=== PATIENT | male | born 1935 | race Caucasian/White ===

== ENCOUNTER 2018-05-27 13:50 | Observation (INO) | payer MEDICARE ==
[2018-05-27] MEDS ORDERED: NS 0.9% 1000 ML* 1,000 ML IV ONE (14:12)
--- NOTE | 2018-05-27 14:20 | ED ---
Syncope/Near Syncope - HPI Summary HPI Summary: This is scribe Eduin Godinez documenting for attending Shay Almodovar MD. LEVEL 5 CAVEAT: Patient suffers from Alzheimers and cannot recall what happened. This patient is an 82 year old M BIBA to [facility] with a chief complaint of near syncope since earlier today. Patient reports weakness and hypotension. He lives at home with his . Per his , he seemed well this morning, but in the middle of doing a puzzle, he rushed to his in the next room with an agitated expression. The reports that he sat back with his mouth open and started tremoring. asked if he was in pain but didnt understand what he was saying. She reports that he is usually healthy and normal except for Alzheimers. Patient did not know where he was. I, Dr. Almodovar, personally performed the services described in this documentation as scribed in my presence, and it is both accurate and complete. - History Of Current Complaint Chief Complaint: EDWeakness Time Seen by Provider: 05/27/18 14:11 Hx Obtained From: Family/Lay Out Inspector - Hx From Patient Unobtainable Due To: Other - Alzheimer's Onset/Duration: Sudden Onset, Lasting Hours, Still Present Timing: Constant Context: Witnessed Activity At Onset: Other - Doing a puzzle Associated Head Trauma: No Aggravating Factor(s): Nothing Alleviating Factor(s): Nothing Associated Signs And Symptoms: Weakness, Other - Hypotension - Allergies/Home Medications Allergies/Adverse Reactions: Allergies Allergy/AdvReac Type Severity Reaction Status Date / Time No Known Allergies Allergy Verified 05/27/18 14:30 Home Medications: Home Medications Donepezil TAB* [Aricept 5 MG TAB*] 10 mg PO QPM 05/27/18 [History Confirmed ] Memantine TAB* [Namenda TAB*] 5 mg PO DAILY 05/27/18 [History Confirmed 05/27/18 ] Omeprazole CAP* [Prilosec CAP* 20 MG] 20 mg PO DAILY 05/27/18 [History Confirmed 05/27/18] Sertraline* [Zoloft*] 25 mg PO BEDTIME 05/27/18 [History Confirmed 05/27/18] PMH/Surg Hx/FS Hx/Imm Hx Endocrine/Hematology History: Denies: Hx Diabetes Cardiovascular History: Denies: Hx Coronary Artery Disease Neurological History: Reports: Other Neuro Impairments/Disorders - Alzheimer's Infectious Disease History: Unable to Obtain/Confirm Infectious Disease History: Denies: Traveled Outside the [place] in Last 30 Days - Family History Known Family History: Positive: Other - Alzheimer's Negative: Cardiac Disease, Diabetes - Social History Occupation: Retired Lives: With Family - Review of Systems Positive: Other - Hypotension Positive: Weakness, Syncope - Near syncope All Other Systems Reviewed And Are Negative: No Physical Exam - Summary Physical Exam Summary: LEVEL 5 CAVEAT: Physical limited due to patient suffering from Alzheimer's. VITAL SIGNS: Reviewed. GENERAL: Patient is a well-developed and nourished MALE who is lying comfortable in the stretcher. Patient is not in any acute respiratory distress. HEAD AND FACE: No signs of trauma. No ecchymosis, hematomas or skull depressions. No sinus tenderness. EYES: PERRLA, EOMI x 2, No injected conjunctiva, no nystagmus. EARS: Hearing grossly intact. Ear canals and tympanic membranes are within normal limits. MOUTH: Oropharynx within normal limits. NECK: Supple, trachea is midline, no adenopathy, no JVD, no carotid bruit, no c- spine tenderness, neck with full ROM. CHEST: Symmetric, no tenderness at palpation LUNGS: Clear to auscultation bilaterally. No wheezing or crackles. CVS: Regular rate and rhythm, S1 and S2 present, no murmurs or gallops appreciated. ABDOMEN: Soft, non-tender. No signs of distention. No rebound no guarding, and no masses palpated. Bowel sounds are normal. EXTREMITIES: FROM in all major joints, no edema, no cyanosis or clubbing. NEURO: Alert and oriented x 3. No acute neurological deficits. Speech is normal and follows commands. SKIN: Dry and warm Triage Information Reviewed: Yes Vital Signs On Initial Exam: Initial Vitals Temp Pulse Resp BP Pulse Ox 96.7 F 51 11 111/64 96 05/27/18 13:56 05/27/18 13:56 05/27/18 13:56 05/27/18 13:56 05/27/18 13:56 Vital Signs Reviewed: Yes Diagnostics - Vital Signs Vital Signs Temp Pulse Resp BP Pulse Ox 05/27/18 13:56 96.7 F 51 11 111/64 96 - Laboratory Result Diagrams: 05/27/18 14:20 05/27/18 14:20 Lab Statement: Any lab studies that have been ordered have been reviewed, and results considered in the medical decision making process. - Radiology Chest X-Ray Radiology Interpretation Completed By: Radiologist - 14:57. NO ACTIVE CARDIOPULMONARY DISEASE. ED Physician has reviewed this report. - CT Brain CT CT Interpretation Completed By: Radiologist - 14:55. NO ACUTE INTRACRANIAL PATHOLOGY. DIFFUSE INVOLUTIONAL CHANGE. ED Physician has reviewed this report. - EKG No standard instances Cardiac Rate: Bradycardia - 51 BPM EKG Rhythm: Sinus Rhythm EKG Interpretation: Taken 14:02. Q wave in V1 and V2. No ST elevation. Course/Dx Assessment/Plan: This is an 82-year-old male who presents to the emergency department with with a chief complaint of having dizziness and a syncopal episode. Patient is unable to give any history since the patient has Alzheimer s dementia. All the history was obtained by . Physical without any significant abnormality except for hemoglobin 13, hematocrit of 38 glucose of 123. Troponin is 0.00. Chest x-ray impression: No active cardiac cuddy pulmonary disease. Head CT impression: No acute interconnected pathology. Diffuse involutional changes. Because of the syncopal episode I discussed the case with Dr. Gomez who accepted the patient for admission. The patient is hemodynamically stable alert oriented 3. - Diagnoses Differential Diagnosis/HQI/PQRI: Positive: Vasovagal Episode Provider Diagnoses: Syncope - Physician Notifications Discussed Care of Patient With: Antonia Gomez - Hospitalist Time Discussed With Above Provider: 16:00 Instructed by Provider To: Admit As Inpatient Discharge - Sign-Out/Discharge Documenting (check all that apply): Patient Departure - Admit to Antonia Gomez MD - Discharge Plan Condition: Stable Disposition: ADMITTED TO [facility]
[2018-05-27 14:38] LABS: ABS Basophils 0.1 10^3/ul (0-0.2); ABS Eosinophils 0.1 10^3/ul (0-0.6); ABS Monocytes 0.7 10^3/ul (0-0.8); ABS Neutrophils 4.3 10^3/ul (1.5-7.7); ABS Nucleated RBC 0 10^3/ul; Eosinophil % 2.3 % (0-6); Hematocrit 38 % (42-52); Mean Corpuscular HGB Conc 34 g/dl (31-36); Mean Corpuscular Hemoglobin 34 pg (27-31); Mean Corpuscular Volume 100 fL (80-94); Mean Platelet Volume 7.2 um3 (7.4-10.4); Nucleated Red Blood Cells % 0; Platelet Count 238 10^3/ul (150-450); Red Blood Count 3.82 10^6/ul (4.00-5.40); Red Cell Distribution Width 14 % (10.5-15); White Blood Count 6.2 10^3/ul (3.5-10.8)
[2018-05-27 14:54] LABS: EGFR Non-African American 65.6 (>60)
--- NOTE | 2018-05-27 14:58 | RAD ---
HISTORY: dizziness COMPARISONS: None TECHNIQUE: Multiple contiguous axial CT scans were obtained of the head without intravenous contrast. FINDINGS: HEMORRHAGE/INFARCT: There is no hemorrhage or acute infarct. MASSES/SHIFT: There is no mass or shift. EXTRA-AXIAL SPACES: There are no extra-axial fluid collections. SULCI AND VENTRICLES: There is diffuse and proportional enlargement of the sulci and ventricles. CEREBRUM: There are no focal parenchymal abnormalities. BRAINSTEM: There are no focal parenchymal abnormalities. CEREBELLUM: There are no focal parenchymal abnormalities. VESSELS: There is calcification of the cavernous segments of the internal carotid arteries bilaterally and of the distal vertebral arteries bilaterally. PARANASAL SINUSES: The paranasal sinuses are clear. ORBITS: The orbits are unremarkable. BONES AND SOFT TISSUE: No bone or soft tissue abnormalities are noted. OTHER: None IMPRESSION: NO ACUTE INTRACRANIAL PATHOLOGY. DIFFUSE INVOLUTIONAL CHANGE.
--- NOTE | 2018-05-27 15:01 | RAD ---
HISTORY: dizziness COMPARISONS: None VIEWS: 4: Frontal dual-energy and lateral views of the chest. FINDINGS: CARDIOMEDIASTINAL SILHOUETTE: The cardiomediastinal silhouette is normal. ANNABEL: The annabel are normal. PLEURA: The costophrenic angles are sharp. No pleural abnormalities are noted. LUNG PARENCHYMA: The lungs are clear. ABDOMEN: The upper abdomen is clear. There is no subphrenic gas. BONES AND SOFT TISSUES: Degenerative changes are noted along the spine. OTHER: None. IMPRESSION: NO ACTIVE CARDIOPULMONARY DISEASE.
[2018-05-27] MEDS ORDERED: Acetaminophen TAB* 325 MG PO PRN (16:51)
[2018-05-27] MEDS: Donepezil TAB* 5 MG PO SCH (18:30)
--- NOTE | 2018-05-27 21:01 | HP ---
HOSPITAL MEDICINE HISTORY AND PHYSICAL: DATE OF ADMISSION: 05/27/18 PRIMARY CARE PHYSICIAN: None. ATTENDING PHYSICIAN: Antonia Gomez MD* (dictation provided by Mayte Meier NP) CHIEF COMPLAINT: Near syncopal episode. HISTORY OF PRESENT ILLNESS: Mr. Matute is an 82-year-old male with past medical history of dementia who presented to the hospital today with his via EMS after having a near syncopal episode. Mr. Matute has been in his normal state of health per his . The patient has poor memory of recent events due to Alzheimer's and is not able to provide much in the way of corroboration of his history of present illness. His states that there has been no report of nausea or vomiting. She has seen no diarrhea. There is no complaint of pain in general. He has not reported chest pain, shortness of breath. She has note noted a cough or fever. Today, the patient was working on a puzzle in his home when he came rushing quickly into the room where his was seated. She knew immediately that something was wrong. The patient sat down in the chair and leaned his head back with his mouth open. The patient 's asked if he was in pain and he mumbled something. He then began shaking violently and she called EMS. By the time EMS arrived, the patient seemed a bit confused but was awake and interactive. There is no report of bowel or bladder incontinence. He did not bite his tongue. In the emergency room, Mr. Matute had labs, which were unremarkable. His EKG shows a sinus bradycardia with no evidence of ischemia. Troponin is 0.00. CRP is 1.35. His TSH is 1.26. The CT brain is normal showing only diffuse involutional changes. Chest x-ray shows no acute intrathoracic process. PAST MEDICAL HISTORY: Dementia with Alzheimer's disease. MEDICATIONS: 1. Donepezil 10 mg p.o. q.p.m. 2. Namenda 5 mg p.o. daily. 3. Omeprazole 20 mg p.o. daily. 4. Sertraline 25 mg p.o. at bedtime. ALLERGIES: No known drug allergies. FAMILY HISTORY: Reviewed and noncontributory. SOCIAL HISTORY: The patient was a former smoker, but he quit decades ago. No report of alcohol or drug use. He lives with his , Cori, who is his healthcare proxy. REVIEW OF SYSTEMS: A 14-point review of systems was completed with Mr. Matute today with the help of his and none were noted to be positive other than those mentioned above. PHYSICAL EXAMINATION GENERAL: Mr. Matute is sitting on the bed with his at the bedside. He is in no acute distress. VITAL SIGNS: Temperature 96.7, pulse rate 54, respiratory rate 18, O2 saturation 95% on room air, blood pressure 118/69. LUNGS: Clear to auscultation bilaterally with no accessory muscle use and good aeration. HEART: S1, S2. No murmur, rub, or gallop and regular. ABDOMEN: Soft, nontender with bowel sounds positive x4. EXTREMITIES: No cyanosis or edema. NEURO: He is alert. He is oriented to himself only. He moves all extremities equally. He follows all commands well. There is no facial asymmetry or focal weakness. Extraocular movements are intact. SKIN: Intact. LABORATORY DATA/DIAGNOSTIC STUDIES: Labs, WBC 6.2, hemoglobin 13.0, hematocrit 38, platelet count 238. Sodium 138, potassium 4.2, chloride 109, serum bicarbonate 26, BUN 17, creatinine 1.0, glucose 123. Magnesium 2.2. Troponin 0.00. CRP 1.35. TSH 1.26. Lactic acid 0.9. Serum alcohol level is less than 10. CT brain shows no acute change, only diffuse involutional changes are noted. Chest x-ray shows no acute intrathoracic process. EKG shows sinus bradycardia with no evidence of ischemia. ASSESSMENT AND PLAN: Mr. Matute is an 82-year-old male with past medical history of Alzheimer's disease who presents to the hospital today after near syncopal episode at home. Our plans are for observation in the hospital for the followin. Near syncope. Plan to monitor on the telemetry unit overnight to evaluate for heart arrhythmia. I will also obtain an EEG based on the description and the possibility for seizure. The patient shows no evidence of infection or any other abnormality thus far in our workup. 2. Dementia. Plan to continue home medications. 3. DVT prophylaxis. Heparin subcu. 4. Code status is full code. This was reviewed with the patient's at the bedside. TIME SPENT: Approximately 60 minutes were spent on the admission of this patient, more than half time spent with the patient at the bedside reviewing the events leading up to this hospitalization, performing the physical examination, and reviewing my plan of care. MAYTE MEIER NP [id number]/[facility] #: [id number] MTDElva
[2018-05-27] MEDS: Sertraline* 25 MG TAB PO SCH (21:59)
[2018-05-27] MEDS: Heparin VIAL(*) 5000 UNITS/ML VIAL (FIVE THOUSAND) SUBCUT SCH (21:59)
[2018-05-27 22:37] LABS: Urine Appearance Clear; Urine Blood Negative (Negative); Urine Color Yellow; Urine Ketones Negative (Negative); Urine Protein Negative (Negative); Urine Specific Gravity 1.014 (1.010-1.030); Urine Urobilinogen Negative (Negative)
[2018-05-28] MEDS: Heparin VIAL(*) 5000 UNITS/ML VIAL (FIVE THOUSAND) SUBCUT SCH ×3 (05:53→21:40)
[2018-05-28] MEDS: Memantine TAB* 5 MG PO SCH (09:27)
[2018-05-28] MEDS: Omeprazole CAP* 20 MG PO SCH (09:29)
--- NOTE | 2018-05-28 14:34 | PN ---
Subjective Date of Service: 05/28/18 Interval History: Patient seen and examined at bedside. Denies fever, chills, shortness of breath , chest discomfort, N/V/D. He states that he felt like he was well hydrated yesterday. Tele: Sinus bonnie to sinus rhythm, rate 40-60's. Family History: Unchanged from Admission Social History: Unchanged from Admission Past Medical History: Unchanged from Admission Objective Active Medications: Acetaminophen (Tylenol Tab*) 650 mg PO Q6H PRN Reason: PAIN Donepezil HCl (Aricept Tab*) 10 mg PO QPM GIDEON Heparin Sodium (Porcine) (Heparin Vial(*)) 5,000 units SUBCUT Q8HR GIDEON Memantine (Namenda Tab*) 5 mg PO DAILY GIDEON Omeprazole (Prilosec Cap*) 20 mg PO DAILY GIDEON Sertraline HCl (Zoloft*) 25 mg PO BEDTIME GIDEON Vital Signs - 8 hr 05/28/18 05/28/18 07:29 11:26 Temperature 97.8 F 97.7 F Pulse Rate 51 57 Respiratory 16 16 Rate Blood Pressure 114/52 101/55 (mmHg) O2 Sat by Pulse 96 96 Oximetry Oxygen Devices in Use Now: None Appearance: NAD, sitting up in bed Ears/Nose/Mouth/Throat: Mucous Membranes Moist Respiratory: Symmetrical Chest Expansion and Respiratory Effort, Clear to Auscultation Cardiovascular: NL Sounds; No Murmurs; No JVD, RRR Abdominal: NL Sounds; No Tenderness; No Distention Extremities: No Edema Skin: No Rash or Ulcers Neurological: Alert and Oriented x 3, NL Muscle Strength and Tone Lines/Tubes/Other Access: Clean, Dry and Intact Peripheral IV - site benign Nutrition: Taking PO's Result Diagrams: 05/27/18 14:20 05/27/18 14:20 Assess/Plan/Problems-Billing Assessment: Mr. Matute is an 82 yo male with PMH significant for dementia who presented to the emergency room after a near syncopal episode. - Patient Problems (1) Syncope Code(s): R55 - SYNCOPE AND COLLAPSE SNOMED Code(s): 694725142 Comment: - Unclear etiology at this time - Brain CT negative - EEG pending - Troponin 0.00 x3, no events on tele (2) Dementia Code(s): F03.90 - UNSPECIFIED DEMENTIA WITHOUT BEHAVIORAL DISTURBANCE SNOMED Code(s): 06295568 Comment: - Continue namenda and aricept (3) DVT prophylaxis Code(s): VUJ8649 - SNOMED Code(s): 276221935 Comment: - SQ heparin (4) Full code status Code(s): Z78.9 - OTHER SPECIFIED HEALTH STATUS SNOMED Code(s): 918475280 Status and Disposition: OBV. Discharge to home when medically stable, possibly in the AM. Attending: Antonia Mckinley
[2018-05-28] MEDS: Donepezil TAB* 5 MG PO SCH (17:08)
[2018-05-28] MEDS: Sertraline* 25 MG TAB PO SCH (21:40)
[2018-05-29] MEDS: Heparin VIAL(*) 5000 UNITS/ML VIAL (FIVE THOUSAND) SUBCUT SCH ×2 (06:04→13:26)
[2018-05-29] MEDS: Omeprazole CAP* 20 MG PO SCH (09:50)
--- NOTE | 2018-05-29 10:11 | EEG ---
ELECTROENCEPHALOGRAPHY: DATE OF STUDY: 05/28/18 PATIENT OF: Jazmyne Hoffman NP HISTORY: This is an 82-year-old being evaluated for near syncope. MEDICATIONS: Include: 1. Aricept. 2. Zoloft. 3. Heparin 4. Namenda. 5. Prilosec. INTERPRETATION: With the patient awake, background cerebral activity consisted of admixed diffuse [id number] amplitude alpha and beta activity. No focal abnormalities or major asymmetries of background. No epileptiform potentials are noted. IMPRESSION: This awake EEG was within normal limits and was called into the patient's hospitalist. [id number]/[facility] #: [id number] [facility] HOSPITALElva
[2018-05-29] MEDS: Memantine TAB* 5 MG PO SCH (10:46)
--- NOTE | 2018-05-29 13:09 | ECHO ---
Patient: SCOTT GUAJARDO [facility] Rec#: [id number] : 1935 Date: 05/29/2018 Age: 82y Height: 180.3 cm / 71.0 in Weight: 72.6 kg / 160.0 lbs Sex: M BSA: 1.9 Room#: [facility] Admit Date#: 05/28/2018 Type: Inpatient Referring: Jazmyne Alexandra NP Reading: Becca Whipple MD [employer] Drawer: Madiha Mahan RN RDCS CC: Sonia Ferris MD Transthoracic Echocardiogram Indication: Syncope BP: 126/66 HR: 64 Rhythm: NSR Findings History: Dementia, Alzheimer's disease, former smoker Technical Comments: The study quality is fair. Left Ventricle: The left ventricular chamber size is normal. There is no left ventricular hypertrophy. Global left ventricular wall motion and contractility are within normal limits. Left ventricular systolic function is at the lower limits of normal. The estimated ejection fraction is 50-55%. There is an E to A reversal in the mitral valve flow pattern suggestive of diastolic dysfunction. Left Atrium: The left atrial chamber size is normal. Right Ventricle: The right ventricular chamber size and systolic function are within normal limits. Right Atrium: The right atrial cavity size is normal. Aortic Valve: The aortic valve leaflets are mildly thickened. There is aortic annular calcification. There is a trace of aortic regurgitation. There is mild aortic stenosis. The mean gradient of the aortic valve is 7 mmHg. The peak instantaneous gradient of the aortic valve is 11 mmHg. The aortic valve area, by peak velocities, is calculated at 2 cm2. The aortic valve area, by VTI's, is calculated at 2 cm2. Dimensionless index is 0.58. Mitral Valve: The mitral valve leaflets are mildly thickened. Mild mitral leaflet calcification is visualized. There is no evidence of mitral regurgitation. There is no evidence of mitral stenosis. Tricuspid Valve: The tricuspid valve leaflets are normal. There is trace tricuspid regurgitation. Unable to estimate the right ventricular systolic pressure. There is no tricuspid stenosis. Pulmonic Valve: The pulmonic valve structure is not well visualized. There is no evidence of pulmonic regurgitation. There is no pulmonic stenosis. Pericardium: There is no significant pericardial effusion. A pericardial fat pad is visualized. Aorta: There is mild dilatation of the ascending aorta. There is no dilatation of the aortic arch. There is no dilation of the aortic root. Pulmonary Artery: The main pulmonary artery is not well visualized. Venous: The inferior vena cava appears normal in size. There is a greater than 50% respiratory change in the inferior vena cava dimension. Conclusions The left ventricular chamber size is normal. Global left ventricular wall motion and contractility are within normal limits. The estimated ejection fraction is 50-55%. There is an E to A reversal in the mitral valve flow pattern suggestive of diastolic dysfunction. The right ventricular chamber size and systolic function are within normal limits. Calcific aortic valve sclerosis with trace aortic regurgitation. There is mild aortic stenosis: the mean gradient of the aortic valve is 7 mmHg. The aortic valve area, by VTI's, is calculated at 2 cm2, dimensionless index is 0.58. Mitral valve sclerosis with good function. There is trace tricuspid regurgitation. No prior echo available to compare. Measurements Name Value Normal Range RVIDd (AP) 2D 3 cm (0.9 - 2.6) RVDdMajor (2D) 2.9 cm (2.2 - 4.4) RAd ISD 4CH 4.4 cm (3.4 - 4.9) RA (A4C)W 3.1 cm (2.9 - 4.6) IVSd (2D) 0.9 cm (0.6 - 1) LVPWd (2D) 1 cm (0.6 - 1) LVIDd (2D) 3.6 cm (3.6 - 5.4) LVIDs (2D) 2.7 cm - LV FS (2D) 25 % (25 - 45) Aortic Annulus 2.2 cm (1.4 - 2.6) Ao root diameter (2D) 3.4 cm (2.1 - 3.5) Ascending Ao 3.8 cm (2.1 - 3.4) Aortic arch 2.5 cm (1.8 - 3.4) LA dimension (AP) 2D 2.7 cm (2.3 - 3.8) LAd ISD 4CH 4.8 cm (2.9 - 5.3) LA ISD 4CH W 3.1 cm (2.5 - 4.5) Name Value Normal Range LA ESV SP 4CH (A/L) 28 ml - LA ESV SP 2CH (A/L) 41 ml - LA ESV BP (A/L) 34 ml - LA ESV BP (A/L) index 17.6 ml/m2 - LA ESV SP 4CH (MOD) 26 ml - LA ESV SP 2CH (MOD) 38 ml - Name Value Normal Range MV E-wave Vmax 0.51 m/sec - MV deceleration time 348 msec - MV A-wave Vmax 0.68 m/sec - MV E:A ratio 0.75 ratio - LV septal e' Vmax 0.07 m/sec - LV lateral e' Vmax 0.09 m/sec - LV E:e' septal ratio 7.3 ratio - LV E:e' lateral ratio 5.7 ratio - Name Value Normal Range AV Vmax 1.7 m/sec - AV VTI 32.8 cm - AV peak gradient 11 mmHg - AV mean gradient 7 mmHg - LVOT diameter 2.1 cm - LVOT Vmax 0.98 m/sec - LVOT VTI 18.9 cm - LVOT peak gradient 4 mmHg - LVOT mean gradient 2 mmHg - DOI (VTI) 0.58 ratio - DOI (Vmax) 0.58 ratio - SANDIE (continuity Vmax) 2 cm2 - SANDIE (continuity VTI) 2 cm2 - ZAKIYA Vmax 0.54 m/sec - Name Value Normal Range IVC diameter 1.6 cm - Name Value Normal Range PV Vmax 0.75 m/sec -
[2018-05-29 16:17] VITALS: BP 99/58
--- NOTE | 2018-05-29 22:23 | PN ---
Subjective Date of Service: 05/29/18 Interval History: No complaints sitting in the chair. Denies dizziness or weakness. Ambulating in the hallways gait steady. Denies chest pain or shortness of breath. alert , answering questions appropriately. Family History: Unchanged from Admission Social History: Unchanged from Admission Past Medical History: Unchanged from Admission Objective Vital Signs - 8 hr 05/29/18 05/29/18 15:20 16:17 Temperature 97.5 F Pulse Rate 69 Respiratory 16 Rate Blood Pressure 97/55 99/58 (mmHg) O2 Sat by Pulse 96 Oximetry Oxygen Devices in Use Now: None Appearance: alert , sittingin the chair , no acute distress Eyes: No Scleral Icterus Ears/Nose/Mouth/Throat: Clear Oropharnyx, Mucous Membranes Moist Neck: NL Appearance and Movements; NL JVP, Trachea Midline Respiratory: Symmetrical Chest Expansion and Respiratory Effort, Clear to Auscultation Cardiovascular: NL Sounds; No Murmurs; No JVD, No Edema Abdominal: NL Sounds; No Tenderness; No Distention Extremities: No Edema, No Clubbing, Cyanosis Skin: No Rash or Ulcers Nutrition: Taking PO's Result Diagrams: 05/27/18 14:20 05/27/18 14:20 Assess/Plan/Problems-Billing Assessment: Mr. Matute is an 82 yo male with PMH significant for dementia who presented to the emergency room after a near syncopal episode. - Patient Problems (1) Syncope Status: Acute Code(s): R55 - SYNCOPE AND COLLAPSE SNOMED Code(s): 769491353 Comment: - Unclear etiology at this time - Brain CT negative - EEG - negative - ECHo - with in normal limits EF 50-55% - Troponin 0.00 x3, no events on tele- would recommend [facility] event monitor for possible cardiac arrhythmias not seen during his hospitalization. (2) Dementia Status: Chronic Code(s): F03.90 - UNSPECIFIED DEMENTIA WITHOUT BEHAVIORAL DISTURBANCE SNOMED Code(s): 96691483 Comment: - Continue namenda and aricept (3) DVT prophylaxis Status: Acute Code(s): HXW4980 - SNOMED Code(s): 625347770 Comment: - SQ heparin (4) Full code status Status: Acute Code(s): Z78.9 - OTHER SPECIFIED HEALTH STATUS SNOMED Code(s) : 429357183 Status and Disposition: OBV. Discharge to home
--- NOTE | 2018-05-31 14:31 | DS ---
DISCHARGE SUMMARY: DATE OF ADMISSION: 05/27/18 DATE OF DISCHARGE: 05/29/18 ATTENDING PHYSICIAN: Antonia Gomez MD (dictated by Rebeca Vanegas NP). PRIMARY CARE PROVIDER: Dr. Sonia Ferris. PRIMARY DIAGNOSIS: Near syncope. SECONDARY DIAGNOSIS: Dementia with Alzheimer's disease. STUDIES COMPLETED WHILE IN THE HOSPITAL: He had a CT of the brain on 05/27/18. Radiologist's impress ion: No acute intracranial pathology, diffuse involutional changes. He had a chest x-ray on 05/27/18. Radiologist's impression: No active cardiopulmonary disease. He had a transthoracic echocardiogram on 05/28/18. Conclusion: The left ventricular chamber size is nor mal. The global left ventricular wall motion and contractility were within normal limits. The estim ated ejection fraction is 50 to 55%. There is E to A reversal on the mitral flow pattern suggestive of diastolic dysfunction. The right ventricular chamber size and systolic function are within normal limits. Calcified aortic valve sclerosis with trace aortic regurgitation, there is mild aortic sten osis. The mean gradient of the aortic valve is 7 mmHg. The aortic valve area by VTIs is calculated at 2 cm, 2-dimension index is 0.58. Mitral valve sclerosis with good function, there is trace tricus pid regurgitation. DISCHARGE MEDICATIONS: No new medications. Continued Home Medications: 1. Aricept 10 mg p.o. q.p.m. 2. Omeprazole 20 mg p.o. daily. 3. Namenda 5 mg p.o. daily. 4. Zoloft 25 mg p.o. at bedtime. HISTORY OF PRESENT ILLNESS AND HOSPITAL COURSE: Mr. Matute is an 82-year-old male patient with the p ast medical history with Alzheimer's dementia who presented to the hospital via EMS after having a ne ar syncopal episode at home. Mr. Matute had been in his normal stage of health, per his the pat ient has poor memory of recent events due to Alzheimer's but is not able to provide much in way of hi story of his present illness. His states that there has been no report of nausea and vomiting. She has seen no diarrhea. There are no complaints of pain in general. He has not reported chest pa in, shortness of breath. He has not noted any cough or fever. Today, the patient was working on a [employer] in his home and when he came rushing quickly into the room where his was seated, she knew immediately something was wrong. The patient sat down on the chair and leaned his head back with his mouth open. The patient's asked if he was in pain and he mumbled something. He then began sha kristian violently and she called EMS. By the time EMS arrived, the patient seemed to be a bit confused but was awake and interactive. There were no reports of bowel or bladder incontinence. He did not b ite his tongue. While in the emergency room, Mr. Matute had lab work, which was unremarkable. EKG showed sinus bonnie cardia with no evidence of ischemia. His troponins were negative at 0.00. CRP was 1.35. TSH was 1. 6. CT of the brain showed only diffuse involutional changes. Chest x-ray showed no acute cardiopulm onary disease. Given the possibility of possible syncopal episode we were asked to see and evaluate him for admission. During his hospitalization, he was monitored on telemetry. There were no cardiac arrhythmias during his hospitalization. He had no further episodes of dizziness or lightheadedness or feeling funny. Nazanin ruiz was able to sit in the chair and ambulate in the hallway without difficulty. His troponin was nega tive throughout the hospitalization. Urinalysis was all within normal limits. A urine toxicology wa s also negative. His serum alcohol was less than 10. Given the negative findings of his echocardiog betarice and no further symptoms at this time, Mr. Matute is stable for discharge home. Mr. Matute will be discharged to home today. Vital signs are as follows: Temperature was 97.5, heart rate 69, respiration 16, O2 saturation 96%. Blood pressure was 99/58. DISCHARGE PLAN: Mr. Matute will be discharge back home. Activity as tolerated. 1. Near syncope: The patient was advised not to drive until he follows up with his primary care pro vider for further evaluation of his near syncopal episode. I would recommend the patient be placed o n a longer term event monitor to rule out any cardiac arrhythmias. Again, he did not have any arrhyt hmias during his hospitalization. His blood pressure during his hospitalization ranged from 97/55 to 138/78. I suspect this near syncopal episode could be related possibly to dehydration and poor nutr itional intake. The patient's reports that the patient has had poor nutritional intake and does not drink a lot when he is at home. I encouraged the patient to drink plenty of fluids. Again, I a dvised the patient not to drive until cleared by his primary care provider. 2. Dementia: He should continue on his home medications, Namenda and Aricept as previously prescri bed. 3. He should resume all of his previous home medications. He is instructed to return to emergency room for any further episodes of feeling dizzy or near syncop al, shortness of breath or chest discomfort. The patient and his verbalized understanding. Aga in, the patient was strongly advised not to drive until further evaluation and clearance by his prima care provider. This is a summarization of his hospitalization. For further details, please obtain his entire medica l record. TIME SPENT: Time spent on this discharge was approximately 60 minutes, greater than half that time w as spent with the patient discussing discharge plans and instructions. CONDITION ON DISCHARGE: Stable. I have discussed with my attending Dr. Antonia Gomez, she is in agreement with my plan. REBECA VANEGAS, SURVIVAL EQUIPMENT REPAIRER [id number]/[facility] #: [id number]
== END 2018-05-29 16:42 | disposition home or self-care (01) ==
LOC: SUPCPDRO 13:50 → ED 13:50 → MEDTELE 16:41
PROVIDERS: ADMIT Internal Medicine; ATTEND Internal Medicine
DX: R55 Syncope and collapse (principal); F03.90 Unspecified dementia, unspecified severity, without behavioral disturbance, psychotic disturbance, mood disturbance, and anxiety; R53.1 Weakness; I95.9 Hypotension, unspecified; R42 Dizziness and giddiness
CPT/HCPCS: 36415; 70450; 71046; 80053; 80307; 80320; 81003; 82550; 83605; 83735; 83880; 84443; 84484; 85025; 86140; 93005; 93306; 95816; 99283; A9270-GY; G0378; G0480; J1644

== ENCOUNTER 2018-06-05 09:36 | Emergency (ER) | payer MEDICARE ==
--- NOTE | 2018-06-05 10:04 | ED ---
GI/ HPI - HPI Summary HPI Summary: The patient is an 82 y/o M presenting to [facility] accompanied by his with chief complaint of blood in stool starting three days ago. His reports his stool is loose and can be watery or soft with red blood in the stool and also expelling from the rectum. He has had some incontinence with his BMs, and there is mild pain associated. His last BM was this morning. The symptoms are not alleviated or aggravated by anything. He has had a decreased appetite and has not eaten today. He denies fevers, chills, nausea, vomiting, abd pain, CP, and back pain. He has not had any similar experience of bleeding from colon or intestines. He was recently admitted to [facility] for a cardiac evaluation that has since resolved, where he was administered heparin, which caused a hematoma to his left abd. He has not taken any other anitbiotics or blood thinners including Aspirin or Coumadin, but does take Omeprazole, Prilosec, Memantine, and Donepezil. He has hx of Alzheimer's. - History of Current Complaint Chief Complaint: EDGIBleed Time Seen by Provider: 06/05/18 09:45 Stated Complaint: BLOOD IN STOOL Hx Obtained From: Patient Onset/Duration: Started Days Ago - three, Still Present Timing: Lasting Days Severity: Mild Current Severity: Mild Pain Intensity: 0 Location of Pain: Rectal Associated Signs and Symptoms: Positive: Rectal Pain, Blood w/Stool, Diarrhea - loose, watery, and soft, Change in Appetite - decreased today, Other: - bruise to left abd from heparin needle. Negative: Back Pain, Nausea, Vomiting, Fever, Chills, Abdominal Pain Aggravating Factor(s): Nothing Alleviating Factor(s): Nothing - Additional Pertinent History Primary Care Physician: MATTHEW - Allergy/Home Medications Allergies/Adverse Reactions: Allergies Allergy/AdvReac Type Severity Reaction Status Date / Time No Known Allergies Allergy Verified 06/05/18 09:41 PMH/Surg Hx/FS Hx/Imm Hx Endocrine/Hematology History: Denies: Hx Diabetes Cardiovascular History: Denies: Hx Coronary Artery Disease Sensory History: Reports: Hx Contacts or Glasses, Hx Hearing Aid Opthamlomology History: Reports: Hx Contacts or Glasses Neurological History: Reports: Other Neuro Impairments/Disorders - Alzheimer's Infectious Disease History: No Infectious Disease History: Denies: Hx Clostridium Difficile, Hx Hepatitis, Hx Human Immunodeficiency Virus (HIV), Hx of Known/Suspected MRSA, Traveled Outside the [place] in Last 30 Days - Family History Known Family History: Positive: Other - Alzheimer's Negative: Cardiac Disease, Diabetes - Social History Alcohol Use: None Substance Use Type: Reports: None Smoking Status (MU): Former Smoker Review of Systems Negative: Fever, Chills Negative: Chest Pain Positive: Diarrhea - loose and watery with bright red blood in stool , Other - some incontinence with BM, decrease in appetite. Negative: Abdominal Pain, Vomiting, Nausea Positive: Other - NEGATIVE: back pain Positive: Bruising - to left abd from heparin needle last week when in hospital All Other Systems Reviewed And Are Negative: Yes Physical Exam - Summary Physical Exam Summary: Constitutional: Well-developed, Well-nourished, Alert. (-) Distressed Skin: Warm, Dry HENT: Normocephalic; Atraumatic Eyes: Conjunctiva normal Neck: Musculoskeletal ROM normal neck. (-) JVD, (-) Stridor, (-) Tracheal deviation Cardio: Rhythm regular, rate normal, Heart sounds normal; Intact distal pulses; The pedal pulses are 2+ and symmetric. Radial pulses are 2+ and symmetric. (-) Murmur Pulmonary/Chest wall: Effort normal. (-) Respiratory distress, (-) Wheezes, (-) Rales Abd: Soft, (-) epigastric tenderness, (-) Distension, (-) Guarding, (-) Rebound Rectal Exam: Empty vault, mucus present in vault, no leonard blood, no hemorrhoids Musculoskeletal: (-) Edema Lymph: (-) Cervical adenopathy Neuro: Alert, Oriented x3 Psych: Mood and affect Normal Triage Information Reviewed: Yes Vital Signs On Initial Exam: Initial Vitals Temp Pulse Resp BP Pulse Ox 97.6 F 64 16 112/69 94 06/05/18 09:37 06/05/18 09:37 06/05/18 09:37 06/05/18 09:37 06/05/18 09:37 Vital Signs Reviewed: Yes Diagnostics - Vital Signs Vital Signs Temp Pulse Resp BP Pulse Ox 06/05/18 09:37 97.6 F 64 16 112/69 94 - Laboratory Result Diagrams: 06/05/18 13:36 06/05/18 11:20 Lab Statement: Any lab studies that have been ordered have been reviewed, and results considered in the medical decision making process. - EKG 10:58 Cardiac Rate: Bradycardia - 58 BPM EKG Rhythm: Sinus Bradycardia EKG Interpretation: No STEMI. Re-Evaluation - Re-Evaluation First Eval Re-Evaluation Time: 14:35 Change: Unchanged Comment: The patient has not yet been able to provide a stool sample. Second Eval Re-Evaluation Time: 14:50 Change: Unchanged Comment: The patient will be discharged home with a stool collection cup. He will follow up with [facility] tomorrow at 0930. GIGU Course/Dx - Course Course Of Treatment: Patient is an 82 y/o M presenting to [facility] accompanied by his with chief complaint of blood in stool for the last three days. The stool is loose, watery, and soft, and the blood is both in the stool and coming from the rectum. Hes had some incontinence with BMs, and there is mild pain associated. Last BM was this morning. He has a decreased appetite. He denies fevers, chills, nausea, vomiting, abd pain, CP, and back pain. No past similar experiences with bleeding from colon or intestines. Recently admitted to [facility] for cardiac evaluation that has been resolved. No blood thinners except heparin when admitted last week. Hx of Alzheimers. Takes Omeprazole, Prilosec, Memantine, and Donepezil. In the ED course, the rectal exam was negative for blood and hemorrhoids. Lab results show stable CBC. I am not inclined to start antibiotics for supposed bloody diarrhea at this time. Stool and C diff will run after stool is collected - patient is given a collection cup. He will be discharged home under stable conditions with dx of diarrhea. He will follow up at [facility] tomorrow 06/06/18 at 0930. I discussed the need to return to the emergency department for any new or worsening symptoms. Patient and his understand and agree with this plan. - Diagnoses Provider Diagnoses: Diarrhea Discharge - Sign-Out/Discharge Documenting (check all that apply): Patient Departure - Patient will be discharged home. - Discharge Plan Condition: Stable Disposition: HOME Patient Education Materials: Acute Diarrhea (ED) Referrals: Josy EUCEDA,Sonia Huber [Primary Care Provider] - [facility] [Outside] - 08/23/18 9:30 am Additional Instructions: Please follow up with [facility] at your scheduled appointment at 09:30 AM tomorrow, 06/06/18. RETURN TO THE EMERGENCY DEPARTMENT FOR ANY NEW OR WORSENING SYMPTOMS - Billing Disposition and Condition Condition: STABLE Disposition: Home - Attestation Statements Document Initiated by Vandanaibe: Yes Documenting Scribe: Stella Rodarte Provider For Whom Scribe is Documenting (Include Credential): Otilio Adams MD Scribe Attestation: I, Stella Rodarte, scribed for Otilio Adams MD on 06/05/18 at 1456. Scribe Documentation Reviewed: Yes Provider Attestation: The documentation as recorded by the Stella fernandez accurately reflects the service I personally performed and the decisions made by me, Otilio Adams MD
[2018-06-05 11:30] LABS: ABS Basophils 0.1 10^3/ul (0-0.2); ABS Eosinophils 0.3 10^3/ul (0-0.6); ABS Lymphocytes 1.1 10^3/ul (1.0-4.8); ABS Monocytes 0.7 10^3/ul (0-0.8); ABS Neutrophils 2.9 10^3/ul (1.5-7.7); ABS Nucleated RBC 0 10^3/ul; Eosinophil % 5.2 % (0-6); Hematocrit 38 % (42-52); Hemoglobin 13.1 g/dl (14.0-18.0); Lymphocyte % 22.8 % (25-47); Mean Corpuscular HGB Conc 34 g/dl (31-36); Mean Corpuscular Hemoglobin 34 pg (27-31); Mean Corpuscular Volume 100 fL (80-94); Mean Platelet Volume 6.7 um3 (7.4-10.4); Nucleated Red Blood Cells % 0; Platelet Count 238 10^3/ul (150-450); Red Blood Count 3.82 10^6/ul (4.00-5.40); Red Cell Distribution Width 13 % (10.5-15)
[2018-06-05 11:49] LABS: EGFR Non-African American 69.3 (>60)
[2018-06-05 13:02] LABS: Urine Appearance Clear; Urine Blood 1+ (Negative); Urine Color Yellow; Urine Ketones Negative (Negative); Urine Protein Negative (Negative); Urine Red Blood Cell Trace(0-2/hpf) (Absent); Urine Specific Gravity 1.018 (1.010-1.030); Urine Urobilinogen Negative (Negative); Urine White Blood Cell Absent (Absent)
[2018-06-05 14:12] LABS: Hematocrit 40 % (42-52); Mean Corpuscular HGB Conc 35 g/dl (31-36); Mean Corpuscular Hemoglobin 35 pg (27-31); Mean Corpuscular Volume 99 fL (80-94); Mean Platelet Volume 7.3 um3 (7.4-10.4); Platelet Count 253 10^3/ul (150-450); Red Blood Count 4.05 10^6/ul (4.00-5.40); Red Cell Distribution Width 13 % (10.5-15); White Blood Count 5.5 10^3/ul (3.5-10.8)
[2018-06-05 15:14] VITALS: BP 113/70
== END 2018-06-05 15:13 | disposition home or self-care (01) ==
LOC: ED 09:36
DX: R19.7 Diarrhea, unspecified (principal)
CPT/HCPCS: 36415; 80053; 81003; 81015; 82272; 83605; 83690; 85025; 85027; 86140; 93005; 99282